=== PATIENT | male | born 1985 ===

== ENCOUNTER 2016-05-29 13:41 | Emergency (ER) | payer OTHER ==
[2016-05-29] MEDS ORDERED: NO HOME MEDICATION XX (14:01)
== END 2016-05-29 14:45 ==
LOC: EDMED 13:41
PROC: 0HQNXZZ Repair Left Foot Skin, External Approach (ICD-10-PCS; principal; 2016-05-29)
DX: S91.115A Laceration without foreign body of left lesser toe(s) without damage to nail, initial encounter (principal); Z23 Encounter for immunization; F17.210 Nicotine dependence, cigarettes, uncomplicated; W27.8XXA Contact with other nonpowered hand tool, initial encounter; Y93.H2 Activity, gardening and landscaping; Y92.89 Other specified places as the place of occurrence of the external cause; Y99.8 Other external cause status